=== PATIENT | female | born 1995 | race Caucasian/White ===

== ENCOUNTER 2017-01-15 13:15 | Emergency (ER) | payer OTHER, BC ==
[2017-01-15] MEDS ORDERED: ACETAMINOPHEN 325 MG TABLET PO ONE (13:24)
--- NOTE | 2017-01-15 13:28 | PDOC ---
Hand / Wrist Injury HPI - General Chief Complaint: Upper Extremity Problem/Injury Stated Complaint: CAUGHT LEFT WRIST IN DRINK MACHINE AT WORK Date Seen by Provider: 01/15/17 Time Seen by Provider: 13:25 Source: POSITIVE: Patient Exam Limitations: POSITIVE: No limitations Nurse's Notes Reviewed & Considered: Yes - History of Present Illness Initial Comments: Patient comes in today with chief complaint of left wrist pain. Yesterday at work patient had her wrist trapped in a machine. 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 She had to have her arm pulled out with assistance. She now has tenderness over the left wrist with decreased range of motion secondary to pain. She has good capillary refill good sensations distally. Have you received a tetanus shot in the past 10 years?: Unknown Body Location Affected: REPORTS: Upper Extremity (L) Timing: REPORTS: Abrupt Duration: <24 hours Severity: Moderate Location at Time of Onset: REPORTS: Work Context: REPORTS: Other (Trapped in a soda machine.) Location of Injury: REPORTS: Left, Wrist Quality: REPORTS: "Pain" Modifying Factors: REPORTS: Movement, Rest Any Prior Injuries Related to Current Complaint?: No - Patient Home Medications Home Medications: Home Medications Albuterol Sulfate [Proair Hfa] 1 - 2 puff INH Q4-6H #1 puff 11/04/15 - Patient Allergies Allergies/Adverse Reactions: Allergies Allergy/AdvReac Type Severity Reaction Status Date / Time No Known Allergies Allergy Verified 01/15/17 13:24 ROS - Limitations ROS Limitations: No Limitations Constitution: REPORTS: Denies Symptoms Cardiovascular: REPORTS: Denies Cardiac Symptoms Respiratory: REPORTS: Denies Resp Symptoms Neurological: REPORTS: Denies Neuro Symptoms Gastrointestinal: REPORTS: Denies GI Symptoms Endocrine: REPORTS: Denies Symptoms Musculoskeletal: REPORTS: Joint Pain (Left wrist) Genitourinary: REPORTS: Denies Symptoms Eyes: REPORTS: Denies Symptoms ENT: REPORTS: Denies Symptoms Skin: REPORTS: Denies Skin Symptoms Lympathic: REPORTS: Denies Lympathic Symptoms Immunologic: POSITIVE: Denies Symptoms Psychiatric: POSITIVE: Denies Psych Symptoms Hand / Wrist Injury Exam - General Appearance General Appearance: POSITIVE: Alert, Cooperative, No Acute Distress, No Evidence of Trauma - Extremities Upper Extremity: POSITIVE: No Evidence of FB, Normal ROM, Soft Tissue Tenderness , Swelling Neurovascular / Tendon: POSITIVE: Sensation Normal, Motor Normal, No Vascular Compromise, Tendon Function Normal Skin: POSITIVE: Warm, Dry - HEENT HEENT: POSITIVE: Head Inspection Nml, Eyes Inspection Nml, Ears Inspection Nml, Nose Inspection Nml, PERRL, EOMI Hand / Wrist Injury Progress - Results Reviewed by me Xrays/CTs/US Reviewed by me: Yes Discussed with Radiologist: No - Patient's Progress Pain Medication Addressed: POSITIVE: Yes Re-Examine Time: 14:17 Status: POSITIVE: Improved MDM / ED Course: Patient was brought back to the main emergency room, examined, x-rays obtained of her wrist. She received 650 mg of by mouth Tylenol and her pain improved. Findings: X-ray is reviewed by me shows no acute osseous abnormalities. Assessment: Wrist strain. Plan: Discharge home cock-up splint, ice packs, Tylenol and ibuprofen, follow up with her primary care physician. - Consult Counseled: POSITIVE: Patient, RE: Radiology Results, RE: DX, RE: Need for F/U Patient Care Time - Estimated PCT Patient Care Time (In Minutes): 15 Vital Signs - Recent Vital Signs Vital Signs: Vital Signs (Last 8 hours) Temp Pulse Resp BP Pulse Ox 01/15/17 13:31 97.8 F 76 16 126/46 95 - VS Reviewed Vital Signs Reviewed: Yes Discharge Clinical Impression: Strain of wrist Discharge Disposition: Discharged to Home Condition: Good Patient Instructions Given at Discharge: Wrist Injury (ED)
[2017-01-15 13:41] VITALS: RESP 16; TEMP 97.8
--- NOTE | 2017-01-15 14:29 | DI ---
LEFT WRIST, 01/15/2017 1:24 PM: Clinical History: Left wrist pain. Previous Exam: None at this facility. 3 views are submitted. There is no acute soft tissue, osseous, or joint abnormality. Reading: Normal left wrist exam.
== END 2017-01-15 14:31 | disposition home or self-care (01) ==
LOC: ER 13:15
DX: S66.912A Strain of unspecified muscle, fascia and tendon at wrist and hand level, left hand, initial encounter (principal); W31.89XA Contact with other specified machinery, initial encounter; Y92.511 Restaurant or cafe as the place of occurrence of the external cause; Y99.0 Civilian activity done for income or pay
CPT/HCPCS: 73110; 99282